=== PATIENT | male | born 1955 | race Caucasian/White ===

== ENCOUNTER 2019-06-11 09:20 | Emergency (ER) | payer MEDICARE ==
[~2019-06-11] VITALS: Ht 188 cm; Wt 98.1 kg
[2019-06-11 09:30] VITALS: BP 104/64
== END 2019-06-11 10:33 | disposition home or self-care (01) ==
LOC: ER 09:21
DX: M79.642 Pain in left hand (principal); X50.1XXA Overexertion from prolonged static or awkward postures, initial encounter; Y93.89 Activity, other specified; Y92.89 Other specified places as the place of occurrence of the external cause; Y99.8 Other external cause status
CPT/HCPCS: 29125; 73130; 99283

== ENCOUNTER 2021-06-03 19:52 | Emergency (ER) | payer MEDICARE ==
[~2021-06-03] VITALS: Ht 188 cm; Wt 128.6 kg
[2021-06-03] MEDS ORDERED: sulfamethoxazole/trimethoprim DS (800/160mg) tablet PO ONE (21:00)
[2021-06-03] MEDS ORDERED: cephalexin 250mg capsule PO ONE (21:00)
[2021-06-03] MEDS ORDERED: SULF1TAB49 PO (21:06)
[2021-06-03] MEDS ORDERED: CEPH500C2 PO (21:06)
[2021-06-03 21:25] VITALS: BP 124/56
== END 2021-06-03 21:28 | disposition home or self-care (01) ==
LOC: ER 19:52
DX: T81.30XA Disruption of wound, unspecified, initial encounter (principal); L08.9 Local infection of the skin and subcutaneous tissue, unspecified; Z79.2 Long term (current) use of antibiotics; Z79.899 Other long term (current) drug therapy
CPT/HCPCS: 99283

== ENCOUNTER 2022-05-12 05:34 | Day surgery (SDC) | payer MEDICARE ==
[2022-05-07 16:21] LABS: BASOPHILS # (AUTO) 0.1 X10'3 (0-0.2); EOSINOPHILS # (AUTO) 0.2 X10'3 (0-0.9); EOSINOPHILS % (AUTO) 2.4 % (0-6); LYMPHOCYTES # (AUTO) 1.1 X10'3 (1.1-4.8); LYMPHOCYTES % (AUTO) 14.3 % (21-51); MEAN CORPUSCULAR HEMOGLOBIN 29.4 PG (27.0-31.0); MEAN CORPUSCULAR HGB CONC 33.8 g/dL (33.0-36.5); MEAN CORPUSCULAR VOLUME 86.9 FL (78-98); MEAN PLATELET VOLUME 7.7 FL (7.4-10.4); MONOCYTES # (AUTO) 0.6 X10'3 (0-0.9); MONOCYTES % (AUTO) 7.6 % (2-12); NEUTROPHILS # (AUTO) 5.8 X10'3 (1.8-7.7); NEUTROPHILS % (AUTO) 74.7 % (42-75); PRE OP HEMATOCRIT 56.7 % (42.0-52.0); PRE OP PLATELET COUNT 152 X10'3 (140-440); RED BLOOD COUNT 6.52 X10'6 (4.70-6.10); RED CELL DISTRIBUTION WIDTH 16.6 % (11.5-14.5)
[2022-05-07 16:23] LABS: PRE OP HEMOGLOBIN 19.2 g/dL (14.0-17.9)
[2022-05-07 16:36] LABS: ALBUMIN 3.6 G/DL (3.4-5.0); ALBUMIN/GLOBULIN RATIO 0.8 (1.1-1.5); ALKALINE PHOSPHATASE 113 IU/L (46-116); BLOOD UREA NITROGEN 43 MG/DL (7-18); BUN/CREATININE RATIO 27.7 (5.4-32.0); CALCIUM 8.8 MG/DL (8.5-10.1); CHLORIDE 98 MMOL/L (99-107); CREATININE 1.55 MG/DL (0.60-1.10); PRE OP ALT 29 U/L (30-65); PRE OP ANION GAP 8 (8-16); PRE OP AST 25 U/L (10-37); PRE OP BILIRUB, TOTAL 0.7 MG/DL (0.0-1.0); PRE OP POTASSIUM 3.9 MMOL/L (3.4-5.1); PRE OP SODIUM 137 MMOL/L (135-145); TOTAL PROTEIN 7.9 G/DL (6.4-8.2); eGFR 45 ML/MIN
[2022-05-07 16:37] LABS: PRE OP GLUCOSE 212 MG/DL (70-104)
[~2022-05-12] VITALS: Ht 188 cm; Wt 133.8 kg
[2022-05-12] VITALS (8 sets, daily range): BP systolic 96–136; BP diastolic 59–87
[~2022-05-12 05:34] MED LIST: ASCO500C17 PO; ASPI81TA52 PO; ATOR40TA72; BUPR-317 PO; CARV3.122 PO; CHOL100046 PO; DOCU-345 PO; DOCUMENT DATE & TIME OF BETA-BLOCKER PO ONE; FURO80TA3 PO; GABA600T13 PO; GEMF600T89 PO; GLIP5TAB13 PO; INSU100I25 SQ; LEVO137T2 PO; MONT-40 PO; OXYC1TAB17 PO; SEMA0.25; SIMV-45 PO; TIZA-205; famotidine 20mg tablet PO ONE; ringers solution, lacted 1,000 ML IV SCH
[2022-05-12] MEDS ORDERED: ceFAZolin 2gm in dextrose, iso 100 ML IV ONE (06:20)
[2022-05-12] MEDS ORDERED: BUPIVAcaine/PF 2.5 mg/ml (0.25%) 30ml vial ONE (06:59)
[2022-05-12] MEDS ORDERED: LIDOcaine 0.5% (5mg/ml) 50ml vial ONE (07:32)
[2022-05-12] MEDS ORDERED: fentaNYL/PF 50MCG/1 ML 2ML syringe ONE ×2 (07:36→08:07)
[2022-05-12] MEDS ORDERED: midazolam 1 mg/ML 2ml injection ONE (07:36)
[2022-05-12] MEDS ORDERED: ceFAZolin 1000mg inj ONE (07:56)
--- NOTE | 2022-05-12 08:29 | NUR ---
Received from OR via danial, accompanied by Anesthesiologist and report given by Garett Anesthesiologist. PATIENT WAKING UP, NO S/S OF PAIN, V/S WNL, SCD ON, PIV 20G TO RUE, BILATERAL WRIST AND LEFT ELBOW DRESSING CDI. ICE AND ELEVATED BUE. Addendum: 05/12/22 at 0858 by Jamie Milian RN Amended: Links added.
[2022-05-12] MEDS ORDERED: propofol inj 20 ML IV ONE (09:18)
--- NOTE | 2022-05-12 09:29 | NUR ---
ALL DISCHARGE CRITERIA HAS BEEN MET. VSS, PAIN AT A TOLERABLE LEVEL, ABLE TO SAFELY AMBULATE AND TRANSFER SELF. IV TAKEN OUT WITHOUT ANY COMPLICATIONS. ALL DISCHARGE INSTRUCTIONS COVERED WITH PATIENT AND ALL QUESTIONS ANSWERED. PATIENT TAKEN OUT VIA WHEELCHAIR WITH ALL BELONGINGS TO PERSONAL VEHICLE WHERE FAMILY/FRIEND DROVE PATIENT HOME. Addendum: 05/12/22 at 0933 by Jamie Milian RN Amended: Links added.
== END 2022-05-12 09:29 | disposition home or self-care (01) ==
LOC: PAS 05:34
PROVIDERS: ATTEND Orthopaedic Surgery Hand Surgery
DX: G56.02 Carpal tunnel syndrome, left upper limb (principal); G56.22 Lesion of ulnar nerve, left upper limb; M65.312 Trigger thumb, left thumb; M65.332 Trigger finger, left middle finger; M65.331 Trigger finger, right middle finger; M19.042 Primary osteoarthritis, left hand; J44.9 Chronic obstructive pulmonary disease, unspecified; F17.210 Nicotine dependence, cigarettes, uncomplicated; G62.9 Polyneuropathy, unspecified; E11.40 Type 2 diabetes mellitus with diabetic neuropathy, unspecified; M19.041 Primary osteoarthritis, right hand; M19.032 Primary osteoarthritis, left wrist; Z89.421 Acquired absence of other right toe(s); Z98.890 Other specified postprocedural states; Z79.899 Other long term (current) drug therapy
CPT/HCPCS: 26055; 36415; 64718; 64721; 71046; 80053; 82948; 85025; 87811; 93005; A6222; J0690; J2250; J2704; J3010; J3490; J7030; J7120; Z7506; Z7512; A4215; A6449

== ENCOUNTER 2024-07-28 18:54 | Inpatient (IN) | payer MEDICARE, OTHER ==
[~2024-07-28] VITALS: Ht 188 cm; Wt 130.0 kg
[~2024-07-28 18:54] MED LIST changes: -BUPR-317 PO; +BUPR-561 PO; -DOCU-345 PO; +DOCU-368 PO; -DOCUMENT DATE & TIME OF BETA-BLOCKER PO ONE; +GABA-1405 PO; -GABA600T13 PO; -GLIP5TAB13 PO; +GLIP5TAB23 PO; -INSU100I25 SQ; +INSU100I27 SQ; -famotidine 20mg tablet PO ONE; -ringers solution, lacted 1,000 ML IV SCH
[2024-07-28 19:45] LABS: BASOPHILS # (AUTO) 0.1 X10'3 (0-0.2); BASOPHILS % (AUTO) 0.5 % (0-1); EOSINOPHILS % (AUTO) 0 % (0-6); HEMATOCRIT 41.4 % (42.0-52.0); HEMOGLOBIN 14.2 g/dl (14.0-17.9); LYMPHOCYTES # (AUTO) 0.5 X10'3 (1.1-4.8); LYMPHOCYTES % (AUTO) 3.9 % (21-51); MEAN CORPUSCULAR HEMOGLOBIN 30.1 PG (27.0-31.0); MEAN CORPUSCULAR HGB CONC 34.3 g/dL (33.0-36.5); MEAN CORPUSCULAR VOLUME 87.9 FL (78-98); MEAN PLATELET VOLUME 8.2 FL (7.4-10.4); MONOCYTES % (AUTO) 8.5 % (2-12); NEUTROPHILS # (AUTO) 10.8 X10'3 (1.8-7.7); NEUTROPHILS % (AUTO) 87.1 % (42-75); PLATELET COUNT 167 X10'3 (140-440); RED BLOOD COUNT 4.72 X10'6 (4.70-6.10); RED CELL DISTRIBUTION WIDTH 15.7 % (11.5-14.5); WHITE BLOOD COUNT 12.4 X10'3 (4.5-11.0)
[2024-07-28] MEDS: ringers solution, lacted 1,000 ML IV ONE (19:45)
[2024-07-28] MEDS: normal saline 1000ML IV soln IVB ONE (19:45)
[2024-07-28] MEDS: CefTRIAXone 2gm/D5W 50ml BAG 50 ML IV ONE (19:51)
[2024-07-28 20:18] LABS: ALANINE AMINOTRANSFERASE 21 U/L (12-78); ALBUMIN 2.7 G/DL (3.4-5.0); ALBUMIN/GLOBULIN RATIO 0.5 (1.1-1.5); ALKALINE PHOSPHATASE 91 IU/L (46-116); ANION GAP 10 (8-16); ASPARTATE AMINO TRANSFERASE 27 U/L (10-37); BILIRUBIN,TOTAL 1.1 MG/DL (0.1-1.0); BLOOD UREA NITROGEN 53 MG/DL (7-18); CALCIUM 9.1 MG/DL (8.5-10.1); CHLORIDE 96 MMOL/L (99-107); CREATININE 1.89 MG/DL (0.60-1.10); GLUCOSE 236 MG/DL (70-104); POTASSIUM 3.8 MMOL/L (3.5-5.1); SODIUM 135 MMOL/L (135-145); TOTAL CARBON DIOXIDE 28.8 MMOL/L (24-32); TOTAL PROTEIN 7.9 G/DL (6.4-8.2); eCRCL 43 ML/MIN; eGFR 36 ML/MIN
[2024-07-28 20:33] LABS: BILIRUBIN,DIRECT 0.6 MG/DL (0-0.3); MAGNESIUM 2.3 MG/DL (1.5-2.4)
[2024-07-28 20:58] LABS: PRO BRAIN NATRIURETIC PEPTIDE 9516 PG/ML (0-125)
[2024-07-28] MEDS: azithromycin/NS 500mg/250ml 250 ML IV ONE (22:33)
[2024-07-28] MEDS ORDERED: potassium Cl 20 mEq SR tablet PO PRN ×2 (22:55)
[2024-07-28] MEDS ORDERED: HYDROcodone/acetaminophen 5mg/325mg tablet PO PRN (22:55)
[2024-07-28] MEDS ORDERED: magnesium hydroxide 30ml (MOM) UD suspension PO PRN (22:55)
[2024-07-28] MEDS ORDERED: magnesium sulf-water 2g/50mL 50 ML IV PRN (22:55)
[2024-07-28] MEDS ORDERED: magnesium Cl slow-release 64mg tablet PO PRN (22:55)
[2024-07-28] MEDS ORDERED: acetaminophen 325mg tablet PO PRN ×2 (22:55)
[2024-07-28] MEDS ORDERED: mag hydrox/Alum hydrox/simeth 30ml oral suspension PO PRN (22:55)
[2024-07-28] MEDS ORDERED: ondansetron/PF 4mg/2ml inj IV PRN (22:55)
[2024-07-28] MEDS ORDERED: magnesium sulf-water 4G/100mL 100 ML IV PRN (22:55)
[2024-07-28] MEDS ORDERED: potassium Cl 40MEQ/1/2NS 520ml 520 ML IV PRN (22:55)
[2024-07-28] MEDS ORDERED: albuterol 2.5 MG/3 ML nebule NEB PRN (22:55)
[2024-07-28] MEDS ORDERED: dextrose 50%-water 50ml dispensing syringe IV PRN ×2 (23:10)
[2024-07-28] MEDS ORDERED: DEXTROSE 15 GM of carb/4 tabs (each vial/BOTTLE has 4 tablets) PO PRN ×2 (23:10)
[2024-07-28] MEDS ORDERED: glucagon, human recombinant 1mg kit SUBCUT PRN (23:10)
[2024-07-28 23:27] LABS: HEMOGLOBIN A1C 6.6 % (4.5-6.2)
[2024-07-28] MEDS: PERFLUTREN PROTEIN-A MICROSPHR (Optison) 0.22 MG/ML 3ML VIAL IV ONE (23:27)
[2024-07-28] MEDS: nicotine 21mg patch - 24 hr TD SCH (23:33)
[2024-07-29] VITALS (25 sets, daily range): BP systolic 106–108; BP diastolic 46–50; PULSE 59–79; RESP 14–28; TEMP 97.6–97.9; O2SAT 88–97
[2024-07-29] MEDS: ipratropium/albuterol 3ml nebule NEB SCH (00:40)
[2024-07-29 03:42] LABS: BASOPHILS % (AUTO) 0.3 % (0-1); EOSINOPHILS % (AUTO) 0.1 % (0-6); HEMATOCRIT 44.4 % (42.0-52.0); LYMPHOCYTES # (AUTO) 0.7 X10'3 (1.1-4.8); LYMPHOCYTES % (AUTO) 5.5 % (21-51); MEAN CORPUSCULAR HEMOGLOBIN 30.3 PG (27.0-31.0); MEAN CORPUSCULAR HGB CONC 33.7 g/dL (33.0-36.5); MEAN PLATELET VOLUME 8.2 FL (7.4-10.4); MONOCYTES # (AUTO) 0.9 X10'3 (0-0.9); MONOCYTES % (AUTO) 7.3 % (2-12); NEUTROPHILS # (AUTO) 10.2 X10'3 (1.8-7.7); NEUTROPHILS % (AUTO) 86.8 % (42-75); PLATELET COUNT 168 X10'3 (140-440); RED BLOOD COUNT 4.94 X10'6 (4.70-6.10); RED CELL DISTRIBUTION WIDTH 15.9 % (11.5-14.5); WHITE BLOOD COUNT 11.8 X10'3 (4.5-11.0)
[2024-07-29 03:53] LABS: INR 1.1 INR; PROTHROMBIN TIME 11.4 SECONDS (9.0-12.0)
[2024-07-29 03:58] LABS: ALANINE AMINOTRANSFERASE 22 U/L (12-78); ALBUMIN 2.8 G/DL (3.4-5.0); ALBUMIN/GLOBULIN RATIO 0.5 (1.1-1.5); ALKALINE PHOSPHATASE 98 IU/L (46-116); ANION GAP 11 (8-16); ASPARTATE AMINO TRANSFERASE 33 U/L (10-37); BILIRUBIN,TOTAL 0.9 MG/DL (0.1-1.0); BLOOD UREA NITROGEN 49 MG/DL (7-18); BUN/CREATININE RATIO 30.1 (10.0-20.0); CALCIUM 9.3 MG/DL (8.5-10.1); CHLORIDE 99 MMOL/L (99-107); CREATININE 1.63 MG/DL (0.60-1.10); GLUCOSE 135 MG/DL (70-104); SODIUM 138 MMOL/L (135-145); TOTAL CARBON DIOXIDE 28.2 MMOL/L (24-32); TOTAL PROTEIN 8.4 G/DL (6.4-8.2); eCRCL 50 ML/MIN; eGFR 42 ML/MIN
[2024-07-29 04:01] LABS: CHOLESTEROL 126 MG/DL (0-200); HDL CHOLESTEROL 42 MG/DL (35-60); LDL CHOLESTEROL 54 MG/DL (50-100); MAGNESIUM 2.4 MG/DL (1.5-2.4); PHOSPHORUS 3.2 MG/DL (2.3-4.5); TRIGLYCERIDES 142 MG/DL (20-135)
[2024-07-29 04:02] LABS: POTASSIUM 3.7 MMOL/L (3.5-5.1)
[2024-07-29 05:45] LABS: ABG BASE EXCESS 2.6 mmol/L (-2.0-3.0); ABG HCO3 27.4 mmol/L (21.0-28.0); ABG OXYGEN SATURATION 89.9 % (94.0-98.0); ABG PCO2 (T) 43.3 mmHg (35.0-48.0); ABG PH (T) 7.421 (7.350-7.450); ABG PO2 (T) 56.2 mmHg (83.0-108.0); ALLEN'S TEST Modified; FLOW 15 L/min; MODE HFNC(salter); PATIENT TEMPERATURE 37.3; TOTAL HEMOGLOBIN 14.7 G/dl (13.5-17.5)
[2024-07-29] MEDS: magnesium sulf-water 2g/50mL 50 ML IV ONE (06:40)
[2024-07-29] MEDS: normal saline 1000ml 1,000 ML IV SCH (06:49)
[2024-07-29] MEDS: INSULIN LISPRO 100 UNIT/ML INSULN.PEN MULTI-DOSE SQ SCH ×2 (07:00→09:00)
[2024-07-29] MEDS: aspirin 325mg tablet PO ONE (07:00)
[2024-07-29] MEDS ORDERED: methylPREDNISolone sod succ/PF 40mg inj. IV SCH (08:00)
[2024-07-29] MEDS: docusate sod 100mg capsule PO SCH (08:00)
[2024-07-29] MEDS: K and/or MAG REPLACEMENT MC SCH (08:00)
[2024-07-29 09:11] LABS: ABG BASE EXCESS -0.6 mmol/L (-2.0-3.0); ABG HCO3 24.4 mmol/L (21.0-28.0); ABG OXYGEN SATURATION 92.2 % (94.0-98.0); ABG PCO2 (T) 41.2 mmHg (35.0-48.0); ABG PO2 (T) 62.7 mmHg (83.0-108.0); ALLEN'S TEST POSITIVE; FCOHb 0.9 % (0.5-1.5); FHHb 7.7 % (0.0-5.0); FLOW 30 L/min; FMetHb 0.3 % (0.0-1.5); FO2Hb 91.1 % (94.0-98.0); MODE HIGH FLOW; TOTAL HEMOGLOBIN 14.3 G/dl (13.5-17.5)
[2024-07-29] MEDS: heparin, porcine 5000 units/ml vial SQ SCH (09:55)
[2024-07-29] MEDS ORDERED: loperamide 2mg capsule PO PRN (10:45)
[2024-07-29 11:45] LABS: D-DIMER 1.24 MG/L FEU (0-0.50)
[2024-07-29 11:56] LABS: THYROID STIMULATING HORMONE 1.65 ulU/ml (0.34-4.50)
[2024-07-29 15:02] LABS: BILIRUBIN,URINE NEGATIVE (Neg); COLOR,URINE YELLOW (Yellow); GLUCOSE, URINE NEGATIVE (Neg); KETONES,URINE NEGATIVE (Neg); LEUKOCYTE ESTERASE ,URINE NEGATIVE (Neg); NITRITES, URINE NEGATIVE (Neg); OCCULT BLOOD,URINE MODERATE (Neg); PH,URINE 5.5 (4.8-8.0); PROTEIN,URINE 100 mg/dl (Neg); UROBILINOGEN,URINE 0.2 E.U/dL (0.2-1.0)
[2024-07-29 15:03] LABS: CLARITY,URINE SLIGHTLY CLOUDY (Clear); UA COLLECTION TYPE VOIDED
[2024-07-29 15:16] LABS: AMORPHOUS URATES 1+; BACTERIA,URINE FEW /HPF (Neg); COARSE GRANULAR CAST 0-3 /LPF (NEGATIVE); HYALINE CASTS 0-3 /LPF (NEGATIVE); MUCUS STRANDS FEW /LPF (Neg); SQUAMOUS EPITHELIAL CELL,UR FEW /LPF (FEW); URINE AMPHETAMINE SCREEN NEGATIVE (Neg); URINE BARBITUATE SCREEN NEGATIVE (Neg); URINE BENZODIAZEPINES SCREEN NEGATIVE (Neg); URINE CANNABINOID SCREEN NEGATIVE (Neg); URINE COCAINE SCREEN NEGATIVE (Neg); URINE METHADONE SCREEN NEGATIVE (Neg); URINE OPIATE SCREEN NEGATIVE (Neg); URINE PHENCYCLIDINE SCREEN NEGATIVE (Neg); WBC,URINE 0-4 /HPF (0-4)
[2024-07-29] MEDS: HYDROcodone/acetaminophen 10/325mg tab PO PRN (19:35)
[2024-07-29] MEDS: CefTRIAXone/D5W-Rocephin 1gm 50 ML IV SCH (19:36)
[2024-07-29] MEDS: oxyCODONE/APAP 10/325mg tablet PO SCH (20:06)
[2024-07-29] MEDS: gabapentin 300mg capsule PO SCH (20:06)
[2024-07-29] MEDS: methylPREDNISolone sod succ 125mg/2ml vial IV SCH (20:07)
[2024-07-29] MEDS: carVEDilol 3.125mg tablet PO SCH (20:07)
[2024-07-29] MEDS: BUPROPION HCL 150MG XL 24 HR 150 MG TAB PO SCH (20:16)
[2024-07-29] MEDS: insulin glargine (Lantus) pen - multi-dose SQ SCH (22:17)
[2024-07-29] MEDS: simvastatin 20mg tablet PO SCH (22:18)
[2024-07-29] MEDS: azithromycin/NS 500mg/250ml 250 ML IV SCH (22:30)
[2024-07-30] VITALS (22 sets, daily range): BP systolic 103–110; BP diastolic 55–60; PULSE 49–70; RESP 11–21; TEMP 97.4–97.8; O2SAT 89–96
[2024-07-30] MEDS: levoTHYROXINE 112mcg tablet PO SCH (07:27)
[2024-07-30] MEDS: levoTHYROXINE 25mcg tablet PO SCH (07:27)
[2024-07-30 07:30] LABS: INR 1.1 INR; PROTHROMBIN TIME 11.1 SECONDS (9.0-12.0)
[2024-07-30] MEDS: aspirin 81mg, enteric-coated 1 TAB TABLET.DR PO SCH (07:30)
[2024-07-30 07:31] LABS: BASOPHILS % (AUTO) 0.1 % (0-1); EOSINOPHILS % (AUTO) 0 % (0-6); HEMATOCRIT 37.9 % (42.0-52.0); LYMPHOCYTES # (AUTO) 0.4 X10'3 (1.1-4.8); LYMPHOCYTES % (AUTO) 5.5 % (21-51); MEAN CORPUSCULAR HEMOGLOBIN 30.4 PG (27.0-31.0); MEAN CORPUSCULAR HGB CONC 34.2 g/dL (33.0-36.5); MEAN CORPUSCULAR VOLUME 88.7 FL (78-98); MEAN PLATELET VOLUME 8.3 FL (7.4-10.4); MONOCYTES # (AUTO) 0.1 X10'3 (0-0.9); MONOCYTES % (AUTO) 1.5 % (2-12); NEUTROPHILS # (AUTO) 6.7 X10'3 (1.8-7.7); NEUTROPHILS % (AUTO) 92.9 % (42-75); PLATELET COUNT 176 X10'3 (140-440); RED BLOOD COUNT 4.27 X10'6 (4.70-6.10); RED CELL DISTRIBUTION WIDTH 15.9 % (11.5-14.5); WHITE BLOOD COUNT 7.2 X10'3 (4.5-11.0)
[2024-07-30 07:47] LABS: ANION GAP 8 (8-16); BILIRUBIN,TOTAL 0.5 MG/DL (0.1-1.0); BLOOD UREA NITROGEN 54 MG/DL (7-18); BUN/CREATININE RATIO 35.1 (10.0-20.0); CALCIUM 8.6 MG/DL (8.5-10.1); CHLORIDE 100 MMOL/L (99-107); CREATININE 1.54 MG/DL (0.60-1.10); GLUCOSE 297 MG/DL (70-104); MAGNESIUM 2.4 MG/DL (1.5-2.4); PHOSPHORUS 3.4 MG/DL (2.3-4.5); SODIUM 138 MMOL/L (135-145); TOTAL CARBON DIOXIDE 29.7 MMOL/L (24-32); TOTAL PROTEIN 6.9 G/DL (6.4-8.2); eCRCL 53 ML/MIN; eGFR 45 ML/MIN
[2024-07-30 07:48] LABS: ALANINE AMINOTRANSFERASE 20 U/L (12-78); ALBUMIN 2.2 G/DL (3.4-5.0); ALBUMIN/GLOBULIN RATIO 0.5 (1.1-1.5); ALKALINE PHOSPHATASE 76 IU/L (46-116); ASPARTATE AMINO TRANSFERASE 29 U/L (10-37)
[2024-07-30] MEDS ORDERED: aminophylline 250mg/10ml inj. IV PRN (09:05)
[2024-07-30] MEDS ORDERED: regadenoson 0.4mg/5ml syringe IV PRN (09:05)
[2024-07-30] MEDS ORDERED: metoprolol tartrate 1mg/ml inj IV PRN (09:05)
[2024-07-30] MEDS ORDERED: nitroGLYCERIN 0.4mg SUBLingual tab SL PRN (09:05)
[2024-07-30] MEDS: furosemide 40mg/4ml inj IV ONE (10:21)
[2024-07-30] MEDS: methylPREDNISolone sod succ 125mg/2ml vial IV SCH (10:30)
[2024-07-30] MEDS ORDERED: lactulose 20gm/30ml cup PO PRN (16:45)
[2024-07-30] MEDS ORDERED: mineral oil 133ml enema RC PRN (16:45)
[2024-07-30] MEDS: magnesium citrate 296ml oral solution PO ONE (17:49)
[2024-07-30] MEDS: gabapentin 300mg capsule PO SCH (20:02)
[2024-07-30] MEDS: polyethylene glycol 3350 17gm powd pack PO SCH (21:26)
[2024-07-31] VITALS (23 sets, daily range): BP systolic 102–120; BP diastolic 54–85; PULSE 45–61; RESP 11–22; TEMP 96.5–97.5; O2SAT 89–95
[2024-07-31] MEDS: magnesium sulf-water 2g/50mL 50 ML IV ONE (04:14)
[2024-07-31 06:49] LABS: BASOPHILS % (AUTO) 0.1 % (0-1); EOSINOPHILS % (AUTO) 0 % (0-6); HEMOGLOBIN 13.3 g/dl (14.0-17.9); LYMPHOCYTES # (AUTO) 0.5 X10'3 (1.1-4.8); LYMPHOCYTES % (AUTO) 6.4 % (21-51); MEAN CORPUSCULAR HEMOGLOBIN 30.5 PG (27.0-31.0); MEAN CORPUSCULAR HGB CONC 34.9 g/dL (33.0-36.5); MEAN CORPUSCULAR VOLUME 87.4 FL (78-98); MEAN PLATELET VOLUME 8.3 FL (7.4-10.4); MONOCYTES # (AUTO) 0.5 X10'3 (0-0.9); MONOCYTES % (AUTO) 7.1 % (2-12); NEUTROPHILS # (AUTO) 6.6 X10'3 (1.8-7.7); NEUTROPHILS % (AUTO) 86.4 % (42-75); PLATELET COUNT 190 X10'3 (140-440); RED BLOOD COUNT 4.35 X10'6 (4.70-6.10); RED CELL DISTRIBUTION WIDTH 15.9 % (11.5-14.5); WHITE BLOOD COUNT 7.6 X10'3 (4.5-11.0)
[2024-07-31 07:03] LABS: INR 1.1 INR; PROTHROMBIN TIME 11.2 SECONDS (9.0-12.0)
[2024-07-31 07:11] LABS: ALANINE AMINOTRANSFERASE 21 U/L (12-78); ALBUMIN 2.2 G/DL (3.4-5.0); ALBUMIN/GLOBULIN RATIO 0.5 (1.1-1.5); ALKALINE PHOSPHATASE 69 IU/L (46-116); ANION GAP 7 (8-16); ASPARTATE AMINO TRANSFERASE 17 U/L (10-37); BILIRUBIN,TOTAL 0.4 MG/DL (0.1-1.0); BLOOD UREA NITROGEN 58 MG/DL (7-18); BUN/CREATININE RATIO 43.9 (10.0-20.0); CALCIUM 8.8 MG/DL (8.5-10.1); CHLORIDE 100 MMOL/L (99-107); CREATININE 1.32 MG/DL (0.60-1.10); GLUCOSE 311 MG/DL (70-104); MAGNESIUM 2.5 MG/DL (1.5-2.4); PHOSPHORUS 2.6 MG/DL (2.3-4.5); POTASSIUM 4.3 MMOL/L (3.5-5.1); SODIUM 136 MMOL/L (135-145); TOTAL CARBON DIOXIDE 29.3 MMOL/L (24-32); TOTAL PROTEIN 6.6 G/DL (6.4-8.2); eCRCL 62 ML/MIN; eGFR 54 ML/MIN
[2024-07-31] MEDS: azithromycin 250mg tablet PO SCH (19:45)
[2024-07-31] MEDS: furosemide 10 MG/1 ML 10ml inj IV SCH (19:47)
[2024-07-31] MEDS: CefTRIAXone/D5W-Rocephin 1gm 50 ML IV SCH (19:48)
[2024-08-01] VITALS (14 sets, daily range): BP systolic 104–121; BP diastolic 53–61; PULSE 45–109; RESP 12–28; TEMP 96.9–98; O2SAT 89–98
[2024-08-01 06:57] LABS: BASOPHILS % (AUTO) 0.5 % (0-1); EOSINOPHILS % (AUTO) 0 % (0-6); HEMATOCRIT 40.9 % (42.0-52.0); HEMOGLOBIN 13.7 g/dl (14.0-17.9); LYMPHOCYTES # (AUTO) 0.7 X10'3 (1.1-4.8); LYMPHOCYTES % (AUTO) 8.5 % (21-51); MEAN CORPUSCULAR HEMOGLOBIN 29.7 PG (27.0-31.0); MEAN CORPUSCULAR HGB CONC 33.6 g/dL (33.0-36.5); MEAN CORPUSCULAR VOLUME 88.4 FL (78-98); MEAN PLATELET VOLUME 7.7 FL (7.4-10.4); MONOCYTES # (AUTO) 0.9 X10'3 (0-0.9); MONOCYTES % (AUTO) 11.1 % (2-12); NEUTROPHILS # (AUTO) 6.3 X10'3 (1.8-7.7); NEUTROPHILS % (AUTO) 79.9 % (42-75); PLATELET COUNT 238 X10'3 (140-440); RED BLOOD COUNT 4.62 X10'6 (4.70-6.10); RED CELL DISTRIBUTION WIDTH 15.9 % (11.5-14.5); WHITE BLOOD COUNT 7.9 X10'3 (4.5-11.0)
[2024-08-01 07:03] LABS: INR 1.1 INR; PROTHROMBIN TIME 11.4 SECONDS (9.0-12.0)
[2024-08-01 07:25] LABS: ALANINE AMINOTRANSFERASE 23 U/L (12-78); ALBUMIN 2.4 G/DL (3.4-5.0); ALBUMIN/GLOBULIN RATIO 0.5 (1.1-1.5); ALKALINE PHOSPHATASE 66 IU/L (46-116); ANION GAP 5 (8-16); ASPARTATE AMINO TRANSFERASE 14 U/L (10-37); BILIRUBIN,TOTAL 0.4 MG/DL (0.1-1.0); BLOOD UREA NITROGEN 56 MG/DL (7-18); BUN/CREATININE RATIO 37.8 (10.0-20.0); CALCIUM 8.5 MG/DL (8.5-10.1); CHLORIDE 100 MMOL/L (99-107); CREATININE 1.48 MG/DL (0.60-1.10); GLUCOSE 289 MG/DL (70-104); MAGNESIUM 2.6 MG/DL (1.5-2.4); PHOSPHORUS 3.2 MG/DL (2.3-4.5); POTASSIUM 4.1 MMOL/L (3.5-5.1); SODIUM 138 MMOL/L (135-145); TOTAL CARBON DIOXIDE 32.7 MMOL/L (24-32); TOTAL PROTEIN 6.8 G/DL (6.4-8.2); eCRCL 56 ML/MIN; eGFR 47 ML/MIN
== END 2024-08-01 17:10 | DRG 871 ==
LOC: ER 18:55 → ED HOLD 23:05 → EDBEDREQ 07-29 14:57 → PCU 3S 07-29 17:20
PROVIDERS: ADMIT Student in an Organized Health Care Education/Training Program; ATTEND Family Medicine
PROC: 5A0945A Assistance with Respiratory Ventilation, 24-96 Consecutive Hours, High Flow/Velocity Cannula (ICD-10-PCS; principal; 2024-07-29)
DX: A41.9 Sepsis, unspecified organism (principal); I21.A1 Myocardial infarction type 2; J18.9 Pneumonia, unspecified organism; J96.01 Acute respiratory failure with hypoxia; N17.0 Acute kidney failure with tubular necrosis; I50.33 Acute on chronic diastolic (congestive) heart failure; J44.0 Chronic obstructive pulmonary disease with (acute) lower respiratory infection; J44.1 Chronic obstructive pulmonary disease with (acute) exacerbation; Z20.822 Contact with and (suspected) exposure to COVID-19; F41.9 Anxiety disorder, unspecified; F17.210 Nicotine dependence, cigarettes, uncomplicated; G89.29 Other chronic pain; M54.9 Dorsalgia, unspecified; F32.A Depression, unspecified; N18.30 Chronic kidney disease, stage 3 unspecified; E11.22 Type 2 diabetes mellitus with diabetic chronic kidney disease; Z79.899 Other long term (current) drug therapy
CPT/HCPCS: 36415; 36600; 71045; 71250; 74176; 76770; 80048; 80053; 80061; 80076; 80305; 81001; 82803; 82948; 83036; 83605; 83735; 83880; 83930; 84100; 84145; 84443; 84484; 85018; 85025; 85379; 85610; 87040; 87070; 87502; 87503; 87811; 93005; 93306; 94640; 94664; 94760; 96365; 96367; 97161; 97530; 99285; A4615; A4620; A6213; A6590; C1758; G0378; J0456; J0696; J1644; J1940; J2919; J7030; J7120

== ENCOUNTER 2025-02-02 07:20 | Outpatient (CLI) | payer MEDICARE, MEDICAID ==
[~2025-02-02 07:20] MED LIST changes: -BUPR-561 PO; +BUPR-726 PO
--- NOTE | 2025-02-02 11:12 | RADIOLOGY REPORT ---
CT Chest without intravenous contrast INDICATION: ENCNTR SCREEN FOR MALIGNANT NEOPLASM OF RESPIRATORY ORGANS TECHNIQUE: Multidetector spiral CT of the chest was performed from the lung apices to the upper abdom en. Axial, coronal and sagittal multiplanar reformats were performed. Radiation Dose : 1. Chest: CTDI volume is 25 mGy. Dose-length product is 250 mGy*cm The dose indicators for CT are the volume Computed Tomography (CT) Dose Index (CTDIvol) and the Dose Length Product (DLP), and are measured in units of mGy and mGy-cm, respectively. These indicators are not patient dose, but values generated from the CT scanner acquisition factors. The report includes radiation exposure data for exposures received during this examination. Findings: Lower neck: normal Lungs: normal Heart/Vascular Structures: normal Lymph Nodes: No adenopathy Pleura: normal Musculoskeletal: normal Body wall: normal Upper abdomen: normal IMPRESSION: Normal study.
== END 2025-02-02 23:59 | disposition home or self-care (01) ==
LOC: RAD 07:20
PROVIDERS: ATTEND Nurse Practitioner
DX: Z12.2 Encounter for screening for malignant neoplasm of respiratory organs (principal); Z87.891 Personal history of nicotine dependence
CPT/HCPCS: 71271